=== PATIENT | male | born 1970 | race American Indian/Alaskan Native ===

== ENCOUNTER 2016-10-07 14:31 | Emergency (ER) | payer SELFPAY ==
[2016-10-07 14:53] VITALS: BP 132/81
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
== END 2016-10-07 18:18 | disposition home or self-care (01) ==
LOC: ED 14:31
DX: S13.4XXA Sprain of ligaments of cervical spine, initial encounter (principal); F17.210 Nicotine dependence, cigarettes, uncomplicated; V89.2XXA Person injured in unspecified motor-vehicle accident, traffic, initial encounter; Y93.89 Activity, other specified; Y92.89 Other specified places as the place of occurrence of the external cause; Y99.8 Other external cause status
CPT/HCPCS: 99282